=== PATIENT | female | born 1950 | race Caucasian/White ===

== ENCOUNTER → 2019-10-08 07:28 | Outpatient (CLI) | payer OTHER, SELFPAY ==
[2019-10-06 09:23] VITALS: BMI 31.8
--- NOTE | 2019-10-06 11:07 | HP_ITS ---
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 Is patient in pain?: No Allergies ezetimibe [From Vytorin] Allergy (Unknown, Verified 10/06/19 09:26) Unknown niacin Allergy (Unknown, Verified 10/06/19 09:26) Unknown rosuvastatin [From Crestor] Allergy (Unknown, Verified 10/06/19 09:26) Unknown simvastatin [From Vytorin] Allergy (Unknown, Verified 10/06/19 09:26) Unknown Medications ergocalciferol (vitamin D2) 1,250 mcg (50,000 unit) capsule 1,250 mcg PO QWEEK cap 10/06/19 [History Confirmed 10/06/19] loratadine 10 mg tablet 10 mg PO DAILY 10/06/19 [History Confirmed 10/06/19] omega-3 fatty acids 1,000 mg capsule 1,000 mg PO DAILY 10/06/19 [History Confirmed 10/06/19] rosuvastatin 5 mg tablet 5 mg PO DAILY tab 10/06/19 [History Confirmed 10/06/19] PFSH Medical History High cholesterol (Acute) Surgical History Hx of left breast biopsy (Acute) Hx of dilation and curettage (Acute) Hx of ovarian cystectomy (Acute) Family History Mother Colon cancer CVA (cerebral vascular accident) Father Prostate cancer Social History (Updated 10/06/19 @ 11:[address] Tl Gibbons MD) Smoking Status: Never smoker second hand exposure: No alcohol intake: current alcohol intake frequency: holidays/special occasions only substance use type: does not use caffeine: Yes what type of physical activity do you participate in: none frequency: does not exercise HPI HPI Surgical H&P: Yes HPI: YASMIN LERMA, is a 69 F who presents to the office today for Evaluation of an abnormal mammogram. Patient had her mammograms at [facility] on 09/15/2019 this showed a 6 mm round density in the right breast with a punctated calcification ultrasound of this area was negative. I had previously done a breast biopsy on her on the left breast which was negative coming back as focal intraductal hyperplasia without atypia mild Fibrocystic changes, and microcalcifications, this was done in 12/30/2013. Her self breast exams have all been negative. ROS General General: No weight change, appetite, fatigue, colon cancer, breast cancer or weakness HEENT HEENT: No difficulty swallowing, eye injury, eye surgery, swollen glands or hoarseness Endo Endocrine: No thyroid disease, diabetes mellitus, thyroid cancer, Hair loss, heat intolerance or cold intolerance Skin Skin: No rash or changing moles Breast Breast: Yes abnormal mammogram and abnormal US; no left breast lump, right breast lump, nipple discharge, breast pain or breast enlargement Musc Musculoskeletal: No back problems, arthritis, rheumatoid arthritis, gout or joint pain Cardio Cardiovascular: No murmur, pacemaker, heart disease, atrial fibrillation, high blood pressure, heart attack, heart stent, palpitations, shortness of breat with exertion or chest pain Psych Psychiatric: No depression, anxiety or hearing voices Resp Respiratory: No shortness of breath, No sleep apnea, No cough, No COPD, No asthma, No emphysema, No wheezing Gastro Gastrointestinal: No abdominal pain, No nausea or vomiting, No diarrhea, No constipation, No blood in stool, No acid reflux, No hemorrhoids, No ulcers, No gallbladder problem, No black,tarry stools Gaurav Hematologic: No blood thinners, No blood disorders, No bleeding, No anemia, No blood clots Neuro Neurologic: No system reviewed and no additional complaints, except as docu, No as per HPI, No abnormal walking, No abnormal hearing, No abnormal movements, No abnormal speech, No behavioral changes, No burning sensations, No confusion, No seizure-like activity, No unsteadiness, No dizziness, No localized weakness, No frequent falls, No headache(s), No lack of coordination, No loss of vision, No memory loss, No numbness, No other visual disturbances, No radiating pain, No restless legs, No sensory deficit, No fainting, No tingling, No tremor(s), No weakness, No other Exam HENMT Head: normal to inspection, normocephalic, atraumatic Mouth: oropharynx normal, moist mucous membranes Eyes General: appearance normal, both eyes and all related structures Sclera: sclerae normal Neck Neck: trachea midline, no lymphadenopathy noted Neck mass: No Thyroid: thyroid normal Lymphatic: no lymphadenopathy noted Chest Breast inspection: normal inspection of the breasts Breast Palpation: No nipple discharge Resp Other: Respiratory Exam: Deferred Cardio Heart Sounds: no murmurs Other: Cardiac Exam: Deferred GI Other: GI Exam: Deferred Other: Rectal Exam: Deferred Extrem Other: Extremity Exam: Deferred Assessment & Plan Problems 1. Abnormal mammogram of right breast R92.8 Plan I have discussed above with the patient. I have recommended Stereotactic breast biopsy with vacuum assistance. I have described the procedure to the patient. I have discussed with the patient that sometimes the Stereotactic lesion may be artifact and is user dependent and therefore prior to undergoing the procedure, the patient will have a definitive US to ensure that the lesion is truly present and is not artifact. A marker clip will be placed to identify the location. Patient has been counseled to the risks/benefits of the procedure. I have explained the risks of the surgery, including but not limited to: infection, bleeding, injury to any blood vessels/nerves, scar tissue, missing the lesion, further surgery, etc. - the patient understands and agrees to proceed. I have answered all of the patient's questions to her satisfaction and she has no further questions. Coding Level of Care Code Off vis,new,level 3 Diagnoses Abnormal mammogram of right breast R92.8 COVID (Procedure Consent) Procedure Criteria Procedure Criteria: Yes Elective The surgeon/proceduralist and patient have discussed in detail the risk of exposure to and/or potential harm posed by the COVID-19 virus with having a surgery/procedure at this time versus the risk of? delaying the surgery/procedure. It is not possible to know either the risk of delaying the surgery or procedure or chance of getting an infection with perfect accuracy, but a joint decision was made between the patient and the surgeon/proceduralist ?to proceed at this time with the scheduled surgery/procedure as indicated on the consent form. 10/06/19 1107 <Electronically signed by Tl medina MD> Date _ Tl Gibbons MD I have re-examined the patient. There are no clinical changes since date of exam.
--- NOTE | 2019-10-08 08:00 | BRBX_PTH ---
PATIENT: YASMIN LERMA LOC: [facility] U#:[id number] AGE/SX: 74/F ROOM: RE10/08/[address]: Dr. Tl Gibbons MD : 1950 BED: DIS: SPEC #: [id number] RECD: 10/08/19 09:07 STATUS: LIEN DINH #: [id number] LEEANN: 10/08/19 08:[address]: Tl Gibbons DEPT: SURGICAL PATHOLOGY RECD BY: Nia Hi ENTERED: 10/08/19 09:31 SP TYPE: BREAST BX OTHR DR: Dr. Darell Quiles MD Tissues: Right breast, NOS Procedures: Surgery Specimen Level IV HEADER OPERATION: Right stereotactic breast biopsy PRE-OP DIAGNOSIS: Right breast density central middle third breast TISSUE SUBMITTED: Right breast core tissue ISCHEMIC TIME: 1 minute FIXATION TIME: 83.5 hours MICROSCOPIC DIAGNOSIS Right breast, density central middle third, stereotactic core biopsy: Intraductal papilloma with intraductal hyperplasia with focal atypia. Focal microcalcifications. Negative for malignancy. See comment. SJ:cristiano 10/12/19 COMMENT Focal additional areas of intraductal hyperplasia with focal atypia are also noted. Correlation with clinical, radiologic findings and appropriate follow up are necessary. Case has been reviewed in consultation with Dr. Schuler who concurs with the above diagnosis. IDC:AM MICROSCOPIC DESCRIPTION Slides are reviewed. GROSS DESCRIPTION Received is one container labeled with the patient's name and not further designated. The specimen consists of multiple elongated fragments of daniels-yellow fibroadipose tissue that in aggregate measure 5 x 3 x 0.6 cm. The entire specimen is submitted in four cassettes. / CLAUDIA:cristiano 10/08/19 TC:5 CPT: 19908
--- NOTE | 2019-10-08 08:29 | PCM.OPRPT ---
Problem List (1) Microcalcification of right breast on mammogram Status: Acute Report of Operation Date of Procedure: 10/08/19 Pre-Operative Diagnosis: Microcalcifications right breast Post-Operative Diagnosis: Same Surgery/Procedure Performed:: Right stereotactic breast biopsy Type of Anesthesia:: Local Estimated Blood Loss (mL): < 5 cc Description of Procedure: Patient was brought into the mammography unit. Placed in the supine position on the fissure table. Right breast was brought down through the opening. A lateral to medial view was obtained. Microcalcifications were identified. ?15 degrees views were obtained. I targeted on the microcalcifications. I prepped the breast with Betadine. I injected 1% lidocaine plain. A skin yesi was made. Needle was placed in the prefire position. Tumors stereotactic views were obtained showing the area to be adequately targeted. I injected more local. I fired the needle and took 360 degree circumferential biopsies. I x-rayed my specimen. Microcalcifications were present. I backed the needle off 7 mm. I placed a small Gelfoam titanium clip in the biopsy cavity. Needle was removed 2 more stereo views were obtained showing the clip to be in good placement. Steri-Strips were applied sterile dressings were applied and the patient tolerated the procedure well. - Admit VTE Documentation VTE Present on Admission: No VTE Mechan Device Prophylaxis: None VTE Pharm Prophylaxis ordered?: No Reason prophylaxis not ordered:: Treatment Not Indicated [id number]: [id number] Bx breast 1st lesion care one at [facility]
== END ==
PROVIDERS: Referring Provider Surgery; Visit Provider Surgery
DX: D24.1 Benign neoplasm of right breast (principal); E78.00 Pure hypercholesterolemia, unspecified
CPT/HCPCS: 19081; 88305; J7050; A4648

== ENCOUNTER 2019-11-19 06:50 | Day surgery (SDC) | payer OTHER, SELFPAY ==
--- NOTE | 2019-11-11 01:03 | HP_ITS ---
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 Is patient in pain?: No Allergies ezetimibe [From Vytorin] Allergy (Unknown, Verified 11/11/19 12:56) Unknown niacin Allergy (Unknown, Verified 11/11/19 12:56) Unknown rosuvastatin [From Crestor] Allergy (Unknown, Verified 11/11/19 12:56) Unknown simvastatin [From Vytorin] Allergy (Unknown, Verified 11/11/19 12:56) Unknown Medications ergocalciferol (vitamin D2) 1,250 mcg (50,000 unit) capsule 1,250 mcg PO QWEEK cap 10/06/19 [History Confirmed 11/11/19] loratadine 10 mg tablet 10 mg PO DAILY 10/06/19 [History Confirmed 11/11/19] omega-3 fatty acids 1,000 mg capsule 1,000 mg PO DAILY 10/06/19 [History Confirmed 11/11/19] rosuvastatin 5 mg tablet 5 mg PO DAILY tab 10/06/19 [History Confirmed 11/11/19] Is last menstrual period known: No Post menopausal: No Patient : No PFSH Medical History High cholesterol (Acute) Surgical History Hx of left breast biopsy (Acute) Hx of dilation and curettage (Acute) Hx of ovarian cystectomy (Acute) History of right breast biopsy (Acute ~10/2019) Family History Mother Colon cancer CVA (cerebral vascular accident) Father Prostate cancer Social History (Updated 11/11/19 @ 13:[address] Tl Gibbons MD) Smoking Status: Never smoker second hand exposure: No alcohol intake: current alcohol intake frequency: holidays/special occasions only substance use type: does not use caffeine: Yes what type of physical activity do you participate in: none frequency: does not exercise HPI HPI HPI: YASMIN THORNEBRYANNAJulisa, is a 69 F who presents to the office today for HPI HPI Surgical H&P: Yes HPI: YASMIN LERMA, is a 69 F who presents to the office today for Follow-up from an abnormal mammogram and right stereotactic breast biopsy. Patient had a right stereotactic breast biopsy completed at [facility] on 10/08/2019. This showed an intraductal papilloma with intraductal hyperplasia with focal atypia and focal microcalcifications it was negative for malignancy. ROS General General: No weight change, appetite, fatigue, colon cancer, breast cancer or weakness HEENT HEENT: No difficulty swallowing, eye injury, eye surgery, swollen glands or hoarseness Endo Endocrine: No thyroid disease, diabetes mellitus, thyroid cancer, Hair loss, heat intolerance or cold intolerance Skin Skin: No rash or changing moles Breast Breast: Yes abnormal mammogram and abnormal US; no left breast lump, right breast lump, nipple discharge, breast pain or breast enlargement Musc Musculoskeletal: No back problems, arthritis, rheumatoid arthritis, gout or joint pain Cardio Cardiovascular: No murmur, pacemaker, heart disease, atrial fibrillation, high blood pressure, heart attack, heart stent, palpitations, shortness of breat with exertion or chest pain Psych Psychiatric: No depression, anxiety or hearing voices Resp Respiratory: No shortness of breath, No sleep apnea, No cough, No COPD, No asthma, No emphysema, No wheezing Gastro Gastrointestinal: No abdominal pain, No nausea or vomiting, No diarrhea, No constipation, No blood in stool, No acid reflux, No hemorrhoids, No ulcers, No gallbladder problem, No black,tarry stools Gaurav Hematologic: No blood thinners, No blood disorders, No bleeding, No anemia, No blood clots Neuro Neurologic: No weakness Exam Const General: no acute distress, well developed, well hydrated Orientation: oriented to person, oriented to place, oriented to time [facility] Head: normocephalic, atraumatic Ears: external ears normal Mouth: moist mucous membranes Eyes Sclera: sclerae normal Pupils: normal by confrontation Neck Neck: no lymphadenopathy noted Neck mass: No Thyroid: thyroid normal, symmetrical Chest Chest palpation & inspection: normal inspection of the chest Breast Palpation: No nipple discharge Resp Effort & Inspection: normal respiratory effort Auscultation: clear to auscultation bilaterally Percussion: percussion normal Cardio Rate: regular rate Rhythm: regular rhythm Heart Sounds: no murmurs GI Palpation: soft, no hepatosplenomegaly, no masses, nontender Rectal Exam: other Other: Rectal exam deferred. Extrem General: normal to inspection, no clubbing, cyanosis or edema Assessment & Plan Problems 1. Intraductal papilloma of right breast D24.1 Plan I have discussed above with the patient. I have recommended stereotactic wire loc right breast bx. I have described the procedure to the patient. Patient has been counseled to the risks/benefits of the procedure. I have explained the risks of the surgery, including but not limited to: infection, bleeding, injury to any blood vessels/nerves, scar tissue, missing the lesion, further surgery, etc. - the patient understands and agrees to proceed. I have answered all of the patient's questions to her satisfaction and she has no further questions. Coding Level of Care Code Off vis,est,level 3 Diagnoses Intraductal papilloma of right breast D24.1 COVID (Procedure Consent) Procedure Criteria Procedure Criteria: Yes Elective The surgeon/proceduralist and patient have discussed in detail the risk of exposure to and/or potential harm posed by the COVID-19 virus with having a surgery/procedure at this time versus the risk of? delaying the surgery/procedure. It is not possible to know either the risk of delaying the surgery or procedure or chance of getting an infection with perfect accuracy, but a joint decision was made between the patient and the surgeon/proceduralist ?to proceed at this time with the scheduled surgery/procedure as indicated on the consent form. 11/11/19 8395 <Electronically signed by Tl medina MD> Date _ Tl Gibbons MD I have re-examined the patient. There are no clinical changes since date of exam.
[2019-11-11 12:57] VITALS: BMI 32.1
[2019-11-19] VITALS (7 sets, daily range): BP systolic 116–134; BP diastolic 56–82; PULSE 66–82; RESP 14–16; TEMP 37.1–37.7; O2SAT 94–98; BMI 33.3
--- NOTE | 2019-11-19 | BRBX_PTH ---
PATIENT: YASMIN LERMA LOC: [facility] U#:[id number] AGE/SX: 69/F ROOM: RE11/19/[address]: Dr. Tl Gibbons MD : 1950 BED: DIS: 11/19/2019 SPEC #: [id number] RECD: 11/19/19 09:07 STATUS: LIEN DINH #: [id number] LEEANN: 11/19/19 00:[address]: Tl Gibbons DEPT: SURGICAL PATHOLOGY RECD BY: Tere Blancas ENTERED: 11/19/19 10:05 SP TYPE: BREAST BX OTHR DR: Dr. Darell Quiles MD Tissues: Right breast, NOS Procedures: Surgery Specimen Level V HEADER OPERATION: Right breast stereotactic wire localization, excisional biopsy PRE-OP DIAGNOSIS: Intraductal papilloma of right breast TISSUE SUBMITTED: Right breast biopsy with stereotactic wire localization MICROSCOPIC DIAGNOSIS Right breast, excisional biopsy with wire localization: Changes consistent with previous biopsy site. Negative for residual intraductal papilloma. Fibrocystic changes and intraductal hyperplasia without atypia. Focal microcalcifications. Skin, dermal fibrosis consistent with scar. Negative for malignancy. CLAUDIA:cristiano 11/24/19 COMMENT Please make reference to previous specimen ([id number]) right breast, density central middle third, stereotactic core biopsy with diagnosis of intraductal papilloma with intraductal hyperplasia with focal atypia. MICROSCOPIC DESCRIPTION Slides are reviewed. GROSS DESCRIPTION Received fresh for intraoperative consultation labeled with the patient's name is a specimen designated right breast needle localization. The specimen consists of a piece of daniels-yellow fibroadipose tissue with needle localization measuring 4.5 x 3.8 x 2 cm. The specimen is inked and serially sectioned. A piece of skin is noted at one edge of the specimen measuring 1 x 0.4 cm. Serial section reveal yellow adipose cut surfaces with focal area of hemorrhage consistent with previous biopsy site. This information is conveyed to the surgeon intraoperatively. The rest of the cut surface show daniels-yellow adipose cut surfaces with a scant fibrous area. No mass lesion is identified. The entire specimen is submitted in 12 cassettes from one end to another end. Cassette 1 contains the bisected skin piece. Sections will be submitted after additional fixation. / CLAUDIA:cristiano 11/20/19 TC:5 CPT: 37207, 88652
--- NOTE | 2019-11-19 07:11 | BI_ITS ---
SURGICAL BREAST SPECIMEN RADIOGRAPH CLINICAL: Document presence of mass in biopsy specimen. FINDINGS: Specimen shows presence of mass. Electronically Signed: Clark Hong, at 10:07 EDT , Service support , BI/Breast Biopsy Specimen
[2019-11-19] MEDS: Lactated Ringers 1,000 ML 100 ML IV (07:35)
[2019-11-19] MEDS: Cefazolin 2 GM in 0.9% Normal Saline 100 ML IV (08:46)
[2019-11-19] MEDS: Bupivacaine Mpf 0.5% 30 ML VIAL (08:53)
--- NOTE | 2019-11-19 09:04 | PCM.DCBBX ---
Discharge Diet: No Restrictions Discharge Activity: Return to Normal Activity May shower in (days): 3 Remove Dressing in (days):: 3 - Leave Dermabond in place. Allergies/Adverse Reactions: Allergies ezetimibe [From Vytorin] Allergy (Unknown, Verified 11/12/19 14:09) Unknown niacin Allergy (Unknown, Verified 11/12/19 14:09) Unknown rosuvastatin [From Crestor] Allergy (Unknown, Verified 11/12/19 14:09) Unknown simvastatin [From Vytorin] Allergy (Unknown, Verified 11/12/19 14:09) Unknown Medications to take at Discharge ergocalciferol (vitamin D2) 1,250 mcg (50,000 unit) capsule 1,250 mcg PO QWEEK cap 10/06/19 loratadine 10 mg tablet 10 mg PO DAILY 10/06/19 omega-3 fatty acids 1,000 mg capsule 1,000 mg PO DAILY 10/06/19 rosuvastatin 5 mg tablet 5 mg PO DAILY tab 10/06/19 Oxycodone HCl/Acetaminophen [Percocet 5/325] 1 - 2 tablet PO Q4H PRN PRN 5 Days #20 tablet 11/19/19 The following prescriptions were given: Oxycodone HCl/Acetaminophen [Percocet 5/325] 1 - 2 tablet PO Q4H PRN PRN 5 Days #20 tablet PRN Reason: Pain Transmission Status: Received by [facility]/pharmacy #[id number] Primary Care Physician: Darell Quiles MD [Primary Care Provider] - Test Results: Test results from this visit will be discussed in further detail at your follow-up appointment, if applicable. Please Follow Up With: Tl Gibbons MD - [phone] When: Please call for an appointment to be seen in one week.
--- NOTE | 2019-11-19 09:04 | OP.PCM_ITS ---
Problem List (1) Intraductal papilloma of right breast Status: Acute Report of Operation Date of Procedure: 11/19/19 Pre-Operative Diagnosis: Intraductal papilloma right breast Post-Operative Diagnosis: Same Surgery/Procedure Performed:: 1. Stereotactic localization of intraductal papilloma right breast. 2. Wire localization breast biopsy right side Type of Anesthesia:: Local MAC Anesthesiologist: Earnest Bernard Specimen's removed: Right breast biopsy Estimated Blood Loss (mL): < 25 cc Fluids Replaced: 600 cc Description of Procedure: Patient was brought into the mammography unit placed in the supine position on the fissure table. The right breast was brought down through the opening a lateral to medial view was obtained. Previous biopsy site and clips were identified. Posterior -15 degrees views were obtained. I targeted on the clip. I prepped the skin with Betadine. I injected 1% lidocaine plain. I placed the needle past the lesion and took 2 more stereo views showing the lesion to be adequately targeted. Needle was removed leaving the wire in place. More mammograms were obtained. The lesion and clip were adequately targeted. The patient was then transferred down to the operating room. In the operating room the right breast was sterilely prepped and draped in usual fashion. Local was injected. Elliptical incision was made around the previous biopsy site was extended both in the medial and lateral fashion. Use electrocau robson and dissected down to the lesion I did get into the lesion and aspirated out the fluid using the suction. And I believe I did suck up my clip during this part of the procedure. I was able to get medial to this lesion and posterior to the lesion and remove it in its entirety and sent it to x-ray. X- ray confirmed that I did suck the clip out. I sent the lesion to pathology they opened it and confirmed that there was a biopsy cavity present. Electrocautery was used for good pneumostasis. More local was injected. I brought the deep layer together with a 2-0 Vicryl. Deep dermal stitches of 3-0 Vicryl. Running 4-0 Monocryl. Dermabond was applied to the skin. Sterile dressings were applied. The patient tolerated the procedure well. - Admit VTE Documentation VTE Present on Admission: No VTE Mechan Device Prophylaxis: SCD's VTE Pharm Prophylaxis ordered?: No Reason prophylaxis not ordered:: Treatment Not Indicated [id number]: [id number] Bx breast 1st lesion strtctc
== END 2019-11-19 10:52 | disposition home or self-care (01) ==
LOC: SDC 06:50 → AC 06:51
PROVIDERS: Anesthesiology; Referring Provider Surgery; Visit Provider Surgery
PROC: (CPT 19081; principal; 2019-11-19 08:15)
DX: N62 Hypertrophy of breast (principal); N60.31 Fibrosclerosis of right breast; E78.00 Pure hypercholesterolemia, unspecified; R92.8 Other abnormal and inconclusive findings on diagnostic imaging of breast
CPT/HCPCS: 19081; 19281; 76098; 87635; 88305; 88307; 94799; J7120; J2405; U0003

== ENCOUNTER 2020-06-09 10:08 | Outpatient (RCR) | payer OTHER, SELFPAY ==
[2019-11-19 07:08] VITALS: BMI 33.3
[2020-06-09] MEDS: COVID-19 VACC, MRNA(PFIZER)/PF 30 MCG/0.3 ML SYRINGE IM (09:38)
[2020-06-30] MEDS: COVID-19 VACC, MRNA(PFIZER)/PF 30 MCG/0.3 ML SYRINGE IM (09:30)
== END 2020-06-09 23:59 ==
LOC: IMMUN 10:08
PROVIDERS: Visit Provider Family Medicine
DX: Z23 Encounter for immunization (principal)
CPT/HCPCS: 0001A; 0002A